=== PATIENT | female | born 1985 ===

== ENCOUNTER → 2025-01-16 09:24 | Outpatient (REF) | payer OTHER, SELFPAY | LOC: RAD 09:24 | PROVIDERS: ATTENDING PHYSICIAN Family Medicine | DX: R10.11 Right upper quadrant pain (principal) | CPT/HCPCS: 76700 ==

== ENCOUNTER 2025-07-20 06:25 | Day surgery (SDC) | payer OTHER, SELFPAY | END 2025-07-20 09:21 | disposition home or self-care (01) | LOC: GI 06:25 | PROVIDERS: ATTENDING PHYSICIAN Internal Medicine Gastroenterology | DX: K63.5 Polyp of colon (principal); R19.4 Change in bowel habit | CPT/HCPCS: 45380; 88305 ==